=== PATIENT | female | born 1940 | race Caucasian/White ===

== ENCOUNTER → 2018-02-23 10:28 | Outpatient (CLI) | payer MEDICARE, OTHER, SELFPAY ==
--- NOTE | 2018-02-23 | DI.MG.S_ITS ---
BILATERAL DIGITAL SCREENING MAMMOGRAM 3D/2D WITH CAD: 02/23/2018 CLINICAL: Routine screening. Family history of breast cancer. Comparison is made to exams dated: 10/15/2016 mammogram, 10/08/2015 mammogram, and 10/05/2014 mammogram - [facility]. The tissue of both breasts is heterogeneously dense. This may lower the sensitivity of mammography. Current study was also evaluated with a Computer Aided Detection (CAD) system. There are mole markers on the right breast. No significant masses, calcifications, or other findings are seen in either breast. There has been no significant interval change. IMPRESSION: NEGATIVE There is no mammographic evidence of malignancy. A 1 year screening mammogram is recommended. This exam was interpreted at Station ID: [id number]. NOTE: For mammograms, a report in lay terms will be sent to the patient. Approximately 15% of breast malignancies will not be visualized mammographically. In the management of a palpable breast mass, a negative mammogram must not discourage biopsy of a clinically suspicious lesion. Electronically Signed By: Reji macdonald/dora:02/24/2018 00:09:13 letter sent: Normal Exam ACR BI-RADS Category 1: Negative 3341F
== END ==
PROVIDERS: Family Provider Family Medicine; PCP Family Medicine; Visit Provider Family Medicine
DX: Z12.31 Encounter for screening mammogram for malignant neoplasm of breast (principal); Z80.3 Family history of malignant neoplasm of breast
CPT/HCPCS: 77063; 77067

== ENCOUNTER → 2018-12-13 10:50 | Outpatient (CLI) | payer MEDICARE, OTHER, SELFPAY ==
--- NOTE | 2018-12-13 10:52 | DI.MRI.S_ITS ---
PROCEDURE: MR LUMBAR SPINE WO CON INDICATIONS: Left leg weakness TECHNIQUE: Noncontrast sagittal T1 spin echo and T2 fast echo, sagittal STIR, axial T1 and T2 fast spin echo through the lumbar spine. In cases with scoliosis, additional coronal T2 fast spin echo may be performed. COMPARISON: [facility], CR, XR LUMBAR SPINE 6V W BENDING, 12/13/2018, 11:34. [facility], MR, L-SPINE WITHOUT CONTRAST, 07/19/2015, 12:14. FINDINGS: Image quality: Excellent. Alignment and Curvature: There is levoconvex scoliotic curvature with apex at L3-4. There is trace retrolisthesis of L1 on L2, L2 on L3, L3 on all or, L4-L5 and L5 on S1. Bone Marrow: Marrow is of normal overall signal. Moderate reactive endplate changes are present at L3-4, L4-5, mild to moderate L2-L3 and L5-S1. No acute vertebral body compression fractures. Spinal Cord: Conus medullaris terminates at the L1 level. Visualized cord demonstrates normal signal and size. Paraspinous Soft Tissues: No paravertebral masses. Discs: Multilevel moderate to severe disc desiccation is present most notable at L4-5 and L5-S1. L1-L2: Mild disc bulge without spinal stenosis. The mild left foraminal narrowing with facet and ligamentum flavum hypertrophy. Epidural lipomatosis is present. No interval change. L2-L3: Mild disc bulge with moderate to severe spinal stenosis. Facet and ligamentum flavum hypertrophy as well as epidural lipomatosis is present. Mild to moderate left and mild right foraminal narrowing with minimal interval progression. L3-L4: Mild disc bulge with moderate spinal stenosis. There is moderate bilateral foraminal narrowing with facet and ligamentum flavum hypertrophy. No interval change. L4-L5: Mild disc bulge including an asymmetric protrusion in the left posterior paracentral location with compromise of the right lateral recess. This has increased in size compared to prior exam. There is moderate bilateral, left third and right foraminal narrowing with facet and ligamentum flavum hypertrophy. L5-S1: Mild disc bulge including a small left foraminal component appearing new. There is moderate to severe left and mild right foraminal narrowing with facet and ligamentum flavum hypertrophy. No interval progression. IMPRESSION: 1. Multilevel degenerative changes with areas of progression as above. 2. Multilevel spinal stenosis most severe at L2-3 secondary to disc bulge with contributing effect of retrolisthesis as well as facet/ligamentum flavum arthropathy. 3. Multilevel foraminal narrowing most prominent at L4-5 and L5-S1 secondary to facet arthropathy as well as retrolisthesis. Dictated by: Thu Carter M.D. on 12/13/2018 at 15:20 Approved by: Thu Carter M.D. on 12/13/2018 at 15:34
--- NOTE | 2018-12-13 10:52 | DI.RAD.S_ITS ---
PROCEDURE: XR LUMBAR SPINE 6V W BENDING INDICATIONS: lumbar spine pain TECHNIQUE: 7 views of the lumbar spine acquired. COMPARISON: [facility], CR, SPINE LUMB 2 OR 3VW, 04/09/2016, 15:13. FINDINGS: Bones: No fracture or focal osseous destruction. Straightening of the normal lordotic curvature. Multilevel degenerative endplate sclerosis and spurring. Diffuse facet arthropathy. Severe narrowing of the L3-L4, L4-L5 disc spaces. Moderate narrowing of the remaining lumbar disc spaces. Levocurvature centered at L3. No evidence of abnormal motion with dynamic flexion and extension lateral views. IMPRESSION: Multilevel spondylosis and levocurvature, grossly unchanged. No evidence of abnormal motion with dynamic flexion and extension lateral views. Dictated by: Zach Astorga M.D. on 12/13/2018 at 13:19 Approved by: Zach Astorga M.D. on 12/13/2018 at 13:21
== END ==
PROVIDERS: Family Provider Family Medicine; PCP Family Medicine; Visit Provider Physical Medicine & Rehabilitation
DX: M48.061 Spinal stenosis, lumbar region without neurogenic claudication (principal); M48.07 Spinal stenosis, lumbosacral region; M47.816 Spondylosis without myelopathy or radiculopathy, lumbar region; M47.817 Spondylosis without myelopathy or radiculopathy, lumbosacral region; M43.16 Spondylolisthesis, lumbar region; M43.17 Spondylolisthesis, lumbosacral region; M51.26 Other intervertebral disc displacement, lumbar region; M96.1 Postlaminectomy syndrome, not elsewhere classified
CPT/HCPCS: 72114; 72148; 99214

== ENCOUNTER 2019-01-25 06:58 | Outpatient (CLI) | payer MEDICARE, OTHER, SELFPAY ==
[2019-01-25] VITALS (11 sets, daily range): BP systolic 91–179; BP diastolic 35–85; PULSE 58–77; RESP 16; TEMP 36.1; O2SAT 93–100
--- NOTE | 2019-01-25 06:59 | DI.RAD.S_ITS ---
PROCEDURE: PAIN L/S TRANSFORAMINAL INJECT INDICATIONS: SPINAL STENOSIS FINDINGS: Fluoroscopic spot filming was performed to verify placement of spinal needles at the L4-L5 level(s), as labeled on the films. Appropriate location(s) of the needle tip(s) was confirmed by injection of iodinated contrast. Dictated by: Zach Astorga M.D. on 01/25/2019 at 11:15 Approved by: Zcah Astorga M.D. on 01/25/2019 at 11:16
[2019-01-25] MEDS: fentaNYL 100 MCG/2 ML INJ 50 MCG IV (08:45)
[2019-01-25] MEDS: MIDAZOLAM 5 MG/5 ML VIAL IV (08:45)
[2019-01-25] MEDS: BUPIVACAINE 0.25% (PF) VIAL 2 ML INJ (08:51)
[2019-01-25] MEDS: DEXAMETHASONE 10 MG/ML VIAL 20 MG INJ (08:51)
[2019-01-25] MEDS: BETAMETHASONE 30 MG/5 ML MDV 6 MG INJ (08:51)
[2019-01-25] MEDS: IOPAMIDOL 15 ML VIAL 3 ML INJ (08:51)
--- NOTE | 2019-01-25 08:54 | PC.NURSE ---
ASSISTING PT OFF TABLE AND TRANSPORTING TO POST PROC AREA IN STABLE CONDITION
--- NOTE | 2019-01-25 09:03 | PC.NURSE ---
Pt returned from procedure in a wheelchair, awake and alert, needed 2 person assist to get back into chair from w/c related to left leg numbness. Resumed monitoring from Martha HOWELL.
--- NOTE | 2019-01-25 09:05 | P.PCN_ITS ---
Procedures Date/Time Date of procedure: 01/25/19 Time of procedure: 09:03 General Procedure description: PREOP DIAGNOSIS 1. FORMAINAL STENOSIS WITH LE SYMPTOMS POST OP DIAGNOSIS 1. FORMAINAL STENOSIS WITH LE SYMPTOMS PROCEDURES 1. FLUOROSCOPICALLY GUIDED CONTRAST CONTROLLED TRANSFORAMINAL EPIDURAL STEROID INJECTION - LEFT L4/5 PHYSICIAN: Geovany Green DO INDICATIONS: Nayeli is referred by for treatment of Foraminal Stenosis with Left LE Symptoms FINDINGS Foraminal Nerve Root Compression secondary to disc disease and facet hypertrophy DESCRIPTION OF PROCEDURE: Following review of allergy and review of potential side effects and complications, including, but not necessarily limited to, infection, allergic reaction, local tissue breakdown, stroke, temporary or permanent nerve injury, paralysis, and possible , the patient indicated that the patient understood and agreed to proceed. An informed consent document was signed by the patient, witnessed by a nurse, and placed in the patient's chart. Additionally, other treatment options including medications, modalities, and physical therapy were reviewed with the patient. After review of previous anaesthesic history and IV conscious sedation the patient was deemed safe to proceed with todays procedure with IV conscious sedation as ASA class II designation. Safety time-out was performed to confirm patient ID, procedure to be performed and site of procedure. IV sedation was accomplished with a combination of 2mg of Versed and 50mcg of Fentanyl administered by the RN after DO order, titrated to patient comfort during the course of the procedure while the patient remained responsive to all verbal commands In the prone position following sterile prep and drape of the lumbar region, the left L4/5 posterior neuroforamen was identified fluoroscopically. The skin was anesthetized via a 25-gauge 1.5-inch needle with 1% lidocaine solution. At this point, a 25-gauge 3.5-inch spinal needle was atraumatically introduced and advanced under fluoroscopic guidance through the posterior left L4/5 neuroforamen to approximately the anterior aspect of the canal. Depth was confirmed on lateral view. Following negative aspiration, injection of approximately 1.5 cc of Isovue 200 under live fluoroscopy in the AP view confirmed excellent flow along the nerve root, into the epidural space without vascular or intrathecal uptake observed Radiological data, including multiple fluoroscopic views of the lumbosacral spine, reveal a spinal needle at the left L4/5 posterior neuroforamen. Subsequent views show flow of contrast material flowing superiorly and inferiorly along the nerve root confirming epidural flow. Subsequently, a test dose of 1.5 cc of 1% lidocaine solution was administered and patient was observed for two minutes for signs or symptoms of complications, including abdominal pain, shortness of breath, bilateral upper or lower extremity weakness, nausea and vomiting, prior to steroid injection. At this point, a total of 3cc or 20mg of dexamethasone and 6mg of betamethasone was injected without incident. The procedure tolerated the procedure well without signs or symptoms of complications prior to transfer to the recovery area continued monitoring without incident. The patient was then transferred to the recovery area where they were observed for an appropriate time after the injection. The patient reported a VAS score of 7 prior to the procedure and a post- procedure VAS of 0. Total Fluoroscopy Time: 20.9 seconds Total Conscious Sedation Time: 24min POST OP INSTRUCTIONS The patient was provided a Pain Log to continue to record their response to the target-specific procedure prior to follow-up visit with their referring physician. Additionally, specific post-injection care instructions and a contact number to our office were provided if concerns arise regarding possible complications associated with the procedure are suspected. Geovany Green DO Complications: none
--- NOTE | 2019-01-25 09:18 | PC.NURSE ---
apt became nauseated and threw up, Tipped her chair up to elevate her feet. and gave her some zofran iv. She says she sometimes has this reaction with medications.
--- NOTE | 2019-01-25 09:50 | PC.NURSE ---
Pt still nauseated but stable, vomited once more after the zofran. Getting some feeling back in her left leg It doesn't feel as heavy she is able to move it dependently. Continues to vomit, notified Dr. Green and started a liter of NS and gave her 0.4mg Narcan.
[2019-01-25] MEDS: ONDANSETRON 4 MG/2 ML INJ IV (10:28)
[2019-01-25] MEDS: SODIUM CHLORIDE 0.9% 1,000 ML 1000 ML IV (10:28)
[2019-01-25] MEDS: NALOXONE 0.4 MG/ML VIAL IV (10:28)
--- NOTE | 2019-01-25 10:37 | PC.NURSE ---
Pt still nauseated, updated her allergy list, pt steady on feet and plans to be in the car [place] at 12:30. Dc'd with . Gave pt some emesis bags for later if needed.
== END 2019-01-25 10:38 ==
LOC: RAD 06:59
PROVIDERS: Family Provider Family Medicine; PCP Family Medicine; Visit Provider Physical Medicine & Rehabilitation
DX: M48.061 Spinal stenosis, lumbar region without neurogenic claudication (principal); M51.16 Intervertebral disc disorders with radiculopathy, lumbar region; M96.1 Postlaminectomy syndrome, not elsewhere classified
CPT/HCPCS: 64483; 99152; J0702; J1100; J2250; J2310; J2405; J3010

== ENCOUNTER → 2019-04-06 12:19 | Outpatient (CLI) | payer MEDICARE, OTHER, SELFPAY ==
--- NOTE | 2019-04-06 | DI.MG.S_ITS ---
BILATERAL DIGITAL SCREENING MAMMOGRAM 3D/2D WITH CAD: 04/06/2019 CLINICAL: Routine screening. Family history of breast cancer. Comparison is made to exams dated: 02/23/2018 mammogram, 10/15/2016 mammogram, and 10/08/2015 mammogram - [facility]. The tissue of both breasts is heterogeneously dense. This may lower the sensitivity of mammography. Current study was also evaluated with a Computer Aided Detection (CAD) system. There are mole markers on the right breast. No significant masses, calcifications, or other findings are seen in either breast. There has been no significant interval change. IMPRESSION: NEGATIVE There is no mammographic evidence of malignancy. A 1 year screening mammogram is recommended. This exam was interpreted at Station ID: [id number]. NOTE: For mammograms, a report in lay terms will be sent to the patient. Approximately 15% of breast malignancies will not be visualized mammographically. In the management of a palpable breast mass, a negative mammogram must not discourage biopsy of a clinically suspicious lesion. Electronically Signed By: Allyson ortiz/dora:04/06/2019 13:02:07 letter sent: Normal Exam ACR BI-RADS Category 1: Negative 3341F
== END ==
PROVIDERS: PCP Family Medicine; Visit Provider Family Medicine
DX: Z12.31 Encounter for screening mammogram for malignant neoplasm of breast (principal); Z80.3 Family history of malignant neoplasm of breast
CPT/HCPCS: 77063; 77067

== ENCOUNTER → 2020-04-19 11:19 | Outpatient (CLI) | payer MEDICARE, OTHER, SELFPAY ==
--- NOTE | 2020-04-19 | DI.MG.S_ITS ---
BILATERAL DIGITAL SCREENING MAMMOGRAM 3D/2D WITH CAD: 04/19/2020 CLINICAL: Routine screening. Family history of breast cancer. Comparison is made to exams dated: 04/06/2019 mammogram, 02/23/2018 mammogram, 10/15/2016 mammogram, 10/08/2015 mammogram, 10/05/2014 mammogram, and 09/16/2013 mammogram - [facility]. The tissue of both breasts is heterogeneously dense. This may lower the sensitivity of mammography. Current study was also evaluated with a Computer Aided Detection (CAD) system. No significant masses, calcifications, or other findings are seen in either breast. There has been no significant interval change. IMPRESSION: NEGATIVE There is no mammographic evidence of malignancy. A 1 year screening mammogram is recommended. This exam was interpreted at Station ID: [id number]. NOTE: For mammograms, a report in lay terms will be sent to the patient. Approximately 15% of breast malignancies will not be visualized mammographically. In the management of a palpable breast mass, a negative mammogram must not discourage biopsy of a clinically suspicious lesion. Electronically Signed By: Balta harris/dora:04/19/2020 14:28:25 letter sent: Normal Exam ACR BI-RADS Category 1: Negative 3341F
== END ==
PROVIDERS: PCP Family Medicine; Referring Provider Family Medicine; Visit Provider Family Medicine
DX: Z12.31 Encounter for screening mammogram for malignant neoplasm of breast (principal); Z80.3 Family history of malignant neoplasm of breast
CPT/HCPCS: 77063; 77067

== ENCOUNTER → 2021-05-21 10:55 | Outpatient (CLI) | payer MEDICARE, OTHER, SELFPAY ==
--- NOTE | 2021-05-21 | DI.MG.S_ITS ---
BILATERAL DIGITAL SCREENING MAMMOGRAM 3D/2D WITH CAD: 05/21/2021 CLINICAL: Routine screening. Family history of breast cancer. Comparison is made to exams dated: 04/19/2020 mammogram, 04/06/2019 mammogram, and 02/23/2018 mammogram - [facility]. The tissue of both breasts is heterogeneously dense. This may lower the sensitivity of mammography. Current study was also evaluated with a Computer Aided Detection (CAD) system. No significant masses, calcifications, or other findings are seen in either breast. There has been no significant interval change. IMPRESSION: NEGATIVE There is no mammographic evidence of malignancy. A 1 year screening mammogram is recommended. This exam was interpreted at Station ID: [id number]. NOTE: For mammograms, a report in lay terms will be sent to the patient. Approximately 15% of breast malignancies will not be visualized mammographically. In the management of a palpable breast mass, a negative mammogram must not discourage biopsy of a clinically suspicious lesion. Electronically Signed By: Aric mejia/dora:05/21/2021 13:09:04 letter sent: Normal Exam ACR BI-RADS Category 1: Negative 3341F
== END ==
PROVIDERS: PCP Physician Assistant Medical; Referring Provider Physician Assistant Medical; Visit Provider Physician Assistant Medical
DX: Z12.31 Encounter for screening mammogram for malignant neoplasm of breast (principal); Z80.3 Family history of malignant neoplasm of breast
CPT/HCPCS: 77063; 77067

== ENCOUNTER → 2021-06-25 09:04 | Outpatient (CLI) | payer MEDICARE, OTHER, SELFPAY ==
[2021-06-25 18:59] LABS: Add Manual Diff / Slide Review NO; Basophils Absolute Auto 0 /uL (0-100); Basophils Percent Auto 1.1 % (0-2); Eosinophils Absolute Auto 100 /uL (0-450); Eosinophils Percent Auto 2.4 % (2-4); Hematocrit 39.4 % (36-46); Hemoglobin 13.3 g/dL (12.0-16.0); Lymphocytes Absolute Auto 2100 /uL (1100-4500); Lymphocytes Percent Auto 49.3 % (25-40); Mean Corpuscular HGB Conc 33.8 % (30-36); Mean Corpuscular Hemoglobin 31.5 PG (26-34); Mean Corpuscular Volume 93.3 fL (80-100); Monocytes Absolute Auto 500 /uL (0-900); Monocytes Percent Auto 10.6 % (3-14); Neutrophils Absolute Auto 1600 /uL (1500-7000); Neutrophils Percent Auto 36.6 % (50-75); Platelet Count 229 X10^3/uL (150-400); Red Blood Cell Count 4.22 X10^6/uL (4.0-5.2); Red Cell Distribution Width 12.9 % (11.6-14.8); White Blood Cell Count 4.2 X10^3/uL (4.5-11.0)
[2021-06-25 19:33] LABS: Alanine Aminotransferase 37 IU/L (<35); Albumin 4.1 g/dL (3.5-5.0); Albumin Globulin Ratio 1.4 (1.0-2.8); Alkaline Phosphatase 57 U/L (38-126); Aspartate Aminotransferase 36 IU/L (14-36); BUN Creatinine Ratio 33.3 (6-22); Bilirubin Total 0.6 mg/dL (0.2-1.3); Blood Urea Nitrogen 19 mg/dL (7-17); Calcium 9.4 mg/dL (8.4-10.2); Carbon Dioxide 30 mmol/L (22-32); Chloride 104 mmol/L (98-107); Cholesterol 230 mg/dL (140-199); Estimated Glomerular Filt Rate > 60.0 mL/min (>60); Glucose 112 mg/dL (80-110); HDL Cholesterol 55 mg/dL (40-60); HEMOLYSIS < 15 (0-50); LDL Cholesterol Calculated 152 mg/dL (<100); Potassium 4.7 mmol/L (3.4-5.1); Sodium 140 mmol/L (137-145); Total Protein 7.1 g/dL (6.3-8.2); Triglycerides 116 mg/dL (35-150)
[2021-06-25 20:07] LABS: TSH w/ Reflex to FT4 2.84 uIU/mL (0.47-4.68)
== END ==
PROVIDERS: PCP Physician Assistant Medical; Visit Provider Physician Assistant Medical
DX: M48.02 Spinal stenosis, cervical region (principal); I10 Essential (primary) hypertension; I48.91 Unspecified atrial fibrillation; G82.20 Paraplegia, unspecified; M41.80 Other forms of scoliosis, site unspecified; M47.27 Other spondylosis with radiculopathy, lumbosacral region; M96.1 Postlaminectomy syndrome, not elsewhere classified
CPT/HCPCS: 80053; 80061; 84443; 85025

== ENCOUNTER → 2021-10-10 08:31 | Outpatient (CLI) | payer MEDICARE, OTHER, SELFPAY ==
[2021-10-10 18:44] LABS: Add Manual Diff / Slide Review NO; Basophils Absolute Auto 0 /uL (0-100); Basophils Percent Auto 1.1 % (0-2); Eosinophils Absolute Auto 100 /uL (0-450); Eosinophils Percent Auto 1.6 % (2-4); Hemoglobin 12.7 g/dL (12.0-16.0); Lymphocytes Absolute Auto 2300 /uL (1100-4500); Lymphocytes Percent Auto 58.8 % (25-40); Mean Corpuscular HGB Conc 33.5 % (30-36); Mean Corpuscular Hemoglobin 30.6 PG (26-34); Mean Corpuscular Volume 91.4 fL (80-100); Monocytes Absolute Auto 400 /uL (0-900); Monocytes Percent Auto 9.6 % (3-14); Neutrophils Absolute Auto 1100 /uL (1500-7000); Neutrophils Percent Auto 28.9 % (50-75); Platelet Count 213 X10^3/uL (150-400); Red Blood Cell Count 4.15 X10^6/uL (4.0-5.2); Red Cell Distribution Width 12.6 % (11.6-14.8); White Blood Cell Count 3.9 X10^3/uL (4.5-11.0)
[2021-10-10 19:06] LABS: Hemoglobin A1C% w Est Avg Glu 6.2 % (4.0-6.0)
[2021-10-10 19:13] LABS: Alanine Aminotransferase 28 IU/L (<35); Albumin 3.8 g/dL (3.5-5.0); Albumin Globulin Ratio 1.3 (1.0-2.8); Alkaline Phosphatase 57 U/L (38-126); Aspartate Aminotransferase 31 IU/L (14-36); BUN Creatinine Ratio 28.1 (6-22); Bilirubin Total 0.5 mg/dL (0.2-1.3); Blood Urea Nitrogen 16 mg/dL (7-17); Carbon Dioxide 27 mmol/L (22-32); Chloride 104 mmol/L (98-107); Cholesterol 207 mg/dL (140-199); Estimated Glomerular Filt Rate > 60 mL/min (>60); Glucose 108 mg/dL (80-110); HDL Cholesterol 45 mg/dL (40-60); HEMOLYSIS < 15 (0-50); LDL Cholesterol Calculated 143 mg/dL (<100); Potassium 4.2 mmol/L (3.4-5.1); Sodium 140 mmol/L (137-145); Total Protein 6.8 g/dL (6.3-8.2); Triglycerides 94 mg/dL (35-150)
== END ==
PROVIDERS: PCP Physician Assistant Medical; Visit Provider Physician Assistant Medical
DX: M48.02 Spinal stenosis, cervical region (principal); I10 Essential (primary) hypertension; R73.9 Hyperglycemia, unspecified; R74.8 Abnormal levels of other serum enzymes
CPT/HCPCS: 80053; 80061; 83036; 85025

== ENCOUNTER → 2022-03-10 09:05 | Outpatient (CLI) | payer MEDICARE, OTHER, SELFPAY ==
[2022-03-10 20:17] LABS: Add Manual Diff / Slide Review NO; Basophils Absolute Auto 0 /uL (0-100); Basophils Percent Auto 1.2 % (0-2); Eosinophils Absolute Auto 0 /uL (0-450); Eosinophils Percent Auto 0.8 % (2-4); Hematocrit 40.2 % (36-46); Hemoglobin 13.7 g/dL (12.0-16.0); Lymphocytes Absolute Auto 1800 /uL (1100-4500); Lymphocytes Percent Auto 44.6 % (25-40); Mean Corpuscular HGB Conc 34.2 % (30-36); Mean Corpuscular Hemoglobin 31.9 PG (26-34); Mean Corpuscular Volume 93.1 fL (80-100); Monocytes Absolute Auto 400 /uL (0-900); Monocytes Percent Auto 10.9 % (3-14); Neutrophils Absolute Auto 1700 /uL (1500-7000); Neutrophils Percent Auto 42.5 % (50-75); Platelet Count 195 X10^3/uL (150-400); Red Blood Cell Count 4.31 X10^6/uL (4.0-5.2); Red Cell Distribution Width 13.3 % (11.6-14.8)
[2022-03-10 20:22] LABS: Hemoglobin A1C% w Est Avg Glu 5.9 % (4.0-6.0)
[2022-03-10 20:36] LABS: Cholesterol 230 mg/dL (140-199); HDL Cholesterol 58 mg/dL (40-60); LDL Cholesterol Calculated 150 mg/dL (<100); Triglycerides 108 mg/dL (35-150)
== END ==
PROVIDERS: PCP Family Medicine; Visit Provider Family Medicine
DX: I48.91 Unspecified atrial fibrillation (principal); E78.2 Mixed hyperlipidemia; R74.8 Abnormal levels of other serum enzymes; E74.39 Other disorders of intestinal carbohydrate absorption; I10 Essential (primary) hypertension; M21.372 Foot drop, left foot; M96.1 Postlaminectomy syndrome, not elsewhere classified
CPT/HCPCS: 80061; 83036; 85025

== ENCOUNTER → 2022-06-25 11:50 | Outpatient (CLI) | payer MEDICARE, OTHER, SELFPAY ==
--- NOTE | 2022-06-25 11:52 | DI.MG.S_ITS ---
BILATERAL DIGITAL SCREENING MAMMOGRAM 3D/2D WITH CAD: 06/25/2022 CLINICAL: Routine screening. Family history of breast cancer. Comparison is made to exams dated: 05/21/2021 mammogram, 04/19/2020 mammogram, and 04/06/2019 mammogram - [facility]. Both breasts are heterogeneously dense, which may obscure small masses (category c / 51-75% glandular tissue). Current study was also evaluated with a Computer Aided Detection (CAD) system. No significant masses, calcifications, or other findings are seen in either breast. There has been no significant interval change. IMPRESSION: NEGATIVE There is no mammographic evidence of malignancy. A 1 year screening mammogram is recommended. Based on the Tyrer Cuzick model (a risk assessment model) the patient's lifetime risk is 5.8% and her 10 year risk is 0.0%. According to the ACR, ACS, and NCCN guidelines, an annual breast MRI exam along with mammogram is recommended if the patient's lifetime risk is 20% or greater. This exam was interpreted at Station ID: [id number]. NOTE: For mammograms, a report in lay terms will be sent to the patient. Approximately 15% of breast malignancies will not be visualized mammographically. In the management of a palpable breast mass, a negative mammogram must not discourage biopsy of a clinically suspicious lesion. Electronically Signed By: Jade frederick/dora:06/25/2022 15:16:24 letter sent: Normal Exam ACR BI-RADS Category 1: Negative 3341F
== END ==
PROVIDERS: PCP Family Medicine; Referring Provider Family Medicine; Visit Provider Family Medicine
DX: Z12.31 Encounter for screening mammogram for malignant neoplasm of breast (principal); Z80.3 Family history of malignant neoplasm of breast
CPT/HCPCS: 77063; 77067

== ENCOUNTER → 2022-09-10 11:07 | Outpatient (CLI) | payer MEDICARE, OTHER, SELFPAY ==
[2022-09-10 20:29] LABS: Add Manual Diff / Slide Review NO; Basophils Absolute Auto 0 /uL (0-100); Basophils Percent Auto 0.9 % (0-2); Eosinophils Absolute Auto 0 /uL (0-450); Eosinophils Percent Auto 0.6 % (2-4); Hematocrit 39.7 % (36-46); Hemoglobin 13.5 g/dL (12.0-16.0); Lymphocytes Absolute Auto 2300 /uL (1100-4500); Lymphocytes Percent Auto 47.6 % (25-40); Mean Corpuscular Hemoglobin 31.6 PG (26-34); Mean Corpuscular Volume 92.8 fL (80-100); Monocytes Absolute Auto 500 /uL (0-900); Neutrophils Absolute Auto 2000 /uL (1500-7000); Neutrophils Percent Auto 40.9 % (50-75); Platelet Count 225 X10^3/uL (150-400); Red Blood Cell Count 4.28 X10^6/uL (4.0-5.2); Red Cell Distribution Width 12.8 % (11.6-14.8); White Blood Cell Count 4.9 X10^3/uL (4.5-11.0)
[2022-09-10 20:40] LABS: Cholesterol 227 mg/dL (140-199); HDL Cholesterol 59 mg/dL (40-60); LDL Cholesterol Calculated 146 mg/dL (<100); Triglycerides 110 mg/dL (35-150)
[2022-09-12 05:00] LABS: x Labcorp Estim. Avg Glu (eAG) 123 mg/dL (.); x Labcorp Hemoglobin A1c 5.9 % (4.8-5.6)
== END ==
PROVIDERS: PCP Family Medicine; Visit Provider Family Medicine
DX: M48.02 Spinal stenosis, cervical region (principal); E78.2 Mixed hyperlipidemia; D70.9 Neutropenia, unspecified; E74.39 Other disorders of intestinal carbohydrate absorption; I10 Essential (primary) hypertension
CPT/HCPCS: 80061; 83036; 85025

== ENCOUNTER → 2023-01-07 08:37 | Outpatient (CLI) | payer MEDICARE, OTHER, SELFPAY | PROVIDERS: PCP Family Medicine; Visit Provider Physician Assistant | DX: L03.012 Cellulitis of left finger (principal) | CPT/HCPCS: 87070; 87075; 87205 ==

== ENCOUNTER → 2023-03-25 13:55 | Outpatient (CLI) | payer MEDICARE, OTHER, SELFPAY ==
[2023-03-25 19:19] LABS: Add Manual Diff / Slide Review NO; Basophils Absolute Auto 0 /uL (0-100); Eosinophils Absolute Auto 0 /uL (0-450); Eosinophils Percent Auto 0.8 % (2-4); Hematocrit 42.2 % (36-46); Hemoglobin 14.2 g/dL (12.0-16.0); Hemoglobin A1C% w Est Avg Glu 5.6 % (4.0-6.0); Lymphocytes Absolute Auto 2200 /uL (1100-4500); Lymphocytes Percent Auto 52.2 % (25-40); Mean Corpuscular HGB Conc 33.6 % (30-36); Mean Corpuscular Hemoglobin 31.5 PG (26-34); Mean Corpuscular Volume 93.6 fL (80-100); Monocytes Absolute Auto 500 /uL (0-900); Monocytes Percent Auto 10.9 % (3-14); Neutrophils Absolute Auto 1500 /uL (1500-7000); Neutrophils Percent Auto 35.1 % (50-75); Platelet Count 212 X10^3/uL (150-400); Red Cell Distribution Width 13.4 % (11.6-14.8); White Blood Cell Count 4.2 X10^3/uL (4.5-11.0)
[2023-03-25 19:25] LABS: BUN Creatinine Ratio 32.7 (6-22); Blood Urea Nitrogen 16 mg/dL (7-17); Calcium 9.8 mg/dL (8.4-10.2); Carbon Dioxide 28 mmol/L (22-32); Chloride 99 mmol/L (98-107); Cholesterol 233 mg/dL (140-199); Estimated Glomerular Filt Rate > 60 mL/min (>60); Glucose 108 mg/dL (80-110); HDL Cholesterol 60 mg/dL (40-60); HEMOLYSIS < 15 (0-50); LDL Cholesterol Calculated 147 mg/dL (<100); Potassium 4.6 mmol/L (3.4-5.1); Sodium 135 mmol/L (137-145); Triglycerides 129 mg/dL (35-150)
== END ==
PROVIDERS: PCP Family Medicine; Visit Provider Family Medicine
DX: D70.9 Neutropenia, unspecified (principal); E78.2 Mixed hyperlipidemia; R73.03 Prediabetes; I48.0 Paroxysmal atrial fibrillation; I10 Essential (primary) hypertension
CPT/HCPCS: 80048; 80061; 83036; 85025

== ENCOUNTER → 2023-03-26 11:24 | Outpatient (CLI) | payer MEDICARE, OTHER, SELFPAY ==
[2023-03-26 20:05] LABS: Creatinine Urine Random 54.9 mg/dL
[2023-03-26 20:10] LABS: Microalbumi Creatinin Ratio Ur 30.9 ug/mg CR (<30); Microalbumin Urine Random 1.7 mg/dL (0-1.6)
== END ==
PROVIDERS: PCP Family Medicine; Visit Provider Family Medicine
DX: R73.03 Prediabetes (principal); D70.9 Neutropenia, unspecified; I10 Essential (primary) hypertension
CPT/HCPCS: 82043; 82570

== ENCOUNTER → 2023-07-09 10:59 | Outpatient (CLI) | payer MEDICARE, OTHER, SELFPAY ==
--- NOTE | 2023-07-09 11:01 | DI.MG.S_ITS ---
BILATERAL DIGITAL SCREENING MAMMOGRAM 3D/2D WITH CAD: 07/09/2023 CLINICAL: Routine screening. Family history of breast cancer. Comparison is made to exams dated: 06/25/2022 mammogram, 05/21/2021 mammogram, and 04/19/2020 mammogram - [facility]. Both breasts are heterogeneously dense, which may obscure small masses (category c / 51-75% glandular tissue). Current study was also evaluated with a Computer Aided Detection (CAD) system. No significant masses, calcifications, or other findings are seen in either breast. There has been no significant interval change. IMPRESSION: NEGATIVE There is no mammographic evidence of malignancy. A 1 year screening mammogram is recommended. Based on the Tyrer Cuzick model (a risk assessment model) the patient's lifetime risk is 2.7% and her 10 year risk is 0.0%. According to the ACR, ACS, and NCCN guidelines, an annual breast MRI exam along with mammogram is recommended if the patient's lifetime risk is 20% or greater. This exam was interpreted at Station ID: [id number]. NOTE: For mammograms, a report in lay terms will be sent to the patient. Approximately 15% of breast malignancies will not be visualized mammographically. In the management of a palpable breast mass, a negative mammogram must not discourage biopsy of a clinically suspicious lesion. Electronically Signed By: Sharif londono/dora:07/09/2023 13:08:24 letter sent: Normal Exam ACR BI-RADS Category 1: Negative 3341F
== END ==
PROVIDERS: PCP Family Medicine; Referring Provider Family Medicine; Visit Provider Family Medicine
DX: Z12.31 Encounter for screening mammogram for malignant neoplasm of breast (principal); Z80.3 Family history of malignant neoplasm of breast; R92.333 Mammographic heterogeneous density, bilateral breasts
CPT/HCPCS: 77063; 77067

== ENCOUNTER → 2024-03-28 09:31 | Outpatient (CLI) | payer MEDICARE, OTHER, SELFPAY ==
[2024-03-28 19:37] LABS: Add Manual Diff / Slide Review NO; Basophils Absolute Auto 0 /uL (0-100); Basophils Percent Auto 1.1 % (0-2); Eosinophils Absolute Auto 0 /uL (0-450); Hematocrit 40.8 % (36-46); Hemoglobin 13.8 g/dL (12.0-16.0); Lymphocytes Absolute Auto 1800 /uL (1100-4500); Lymphocytes Percent Auto 42.3 % (25-40); Mean Corpuscular HGB Conc 33.7 % (30-36); Mean Corpuscular Hemoglobin 31.8 PG (26-34); Mean Corpuscular Volume 94.3 fL (80-100); Monocytes Absolute Auto 600 /uL (0-900); Monocytes Percent Auto 13.4 % (3-14); Neutrophils Absolute Auto 1800 /uL (1500-7000); Neutrophils Percent Auto 42.2 % (50-75); Platelet Count 231 X10^3/uL (150-400); Red Blood Cell Count 4.33 X10^6/uL (4.0-5.2); White Blood Cell Count 4.2 X10^3/uL (4.5-11.0)
[2024-03-28 19:44] LABS: BUN Creatinine Ratio 36.2 (6-22); Blood Urea Nitrogen 21 mg/dL (7-17); Carbon Dioxide 30 mmol/L (22-32); Chloride 99 mmol/L (98-107); Cholesterol 235 mg/dL (140-199); Estimated Glomerular Filt Rate > 60 mL/min (>60); Glucose 113 mg/dL (80-110); HDL Cholesterol 61 mg/dL (40-60); HEMOLYSIS 23 (0-50); LDL Cholesterol Calculated 151 mg/dL (<100); Potassium 4.8 mmol/L (3.4-5.1); Sodium 135 mmol/L (137-145); Triglycerides 117 mg/dL (35-150)
[2024-03-28 20:12] LABS: TSH w/ Reflex to FT4 2.44 uIU/mL (0.47-4.68)
== END ==
PROVIDERS: PCP Family Medicine; Visit Provider Family Medicine
DX: R80.9 Proteinuria, unspecified (principal); E78.2 Mixed hyperlipidemia; I48.0 Paroxysmal atrial fibrillation; D70.9 Neutropenia, unspecified; I10 Essential (primary) hypertension; M48.062 Spinal stenosis, lumbar region with neurogenic claudication
CPT/HCPCS: 80048; 80061; 84443; 85025

== ENCOUNTER 2024-05-04 18:44 | Emergency (ER) | payer MEDICARE, OTHER, SELFPAY ==
[2024-05-04] VITALS (10 sets, daily range): BP systolic 128–151; BP diastolic 63–108; PULSE 65–145; RESP 11–18; TEMP 36.3–37.1; O2SAT 96–99; BMI 20.6
--- NOTE | 2024-05-04 19:04 | DI.RAD.S_ITS ---
PROCEDURE: XR CHEST 1V INDICATIONS: chest pain TECHNIQUE: One view of the chest was acquired. COMPARISON: None. FINDINGS: Surgical changes and devices: None. Lungs and pleura: Lungs are clear. No pleural effusions or pneumothorax. Mediastinum: Mediastinal contours appear normal. Heart size is normal. Bones and chest wall: No suspicious bony lesions. Overlying soft tissues appear unremarkable. IMPRESSION: No acute pulmonary process. Dictated by: Thu Carter M.D. on 05/04/2024 at 20:02 Approved by: Thu Carter M.D. on 05/04/2024 at 20:02
--- NOTE | 2024-05-04 19:04 | EKG_ITS ---
[address] [address] Test Date: 2024-05-04 Pat Name: Nayeli Solis Department: Room: Gender: Female [employer] Helper: IDALMIS : 1940 Requested By: Order Number: [id number] Reading MD: Fran Martinez Measurements Intervals [place] Rate: 81 P: 51 DC: 202 QRS: -26 QRSD: 72 T: 31 QT: 366 QTc: 425 Interpretive Statements Normal sinus rhythm Inferior infarct , age undetermined Electronically Signed On 05-05-2024 7:59:03 PST by Fran Martinez
[2024-05-04] MEDS: ASPIRIN 81 MG CHEW TAB 324 MG PO (19:38)
[2024-05-04 20:00] LABS: Add Manual Diff / Slide Review NO; Basophils Absolute Auto 100 /uL (0-100); Basophils Percent Auto 1.2 % (0-2); Eosinophils Absolute Auto 0 /uL (0-450); Eosinophils Percent Auto 0.5 % (2-4); Hematocrit 41.2 % (36-46); Hemoglobin 13.9 g/dL (12.0-16.0); Lymphocytes Absolute Auto 2700 /uL (1100-4500); Lymphocytes Percent Auto 52.1 % (25-40); Mean Corpuscular HGB Conc 33.7 % (30-36); Mean Corpuscular Hemoglobin 31.8 PG (26-34); Mean Corpuscular Volume 94.5 fL (80-100); Monocytes Absolute Auto 400 /uL (0-900); Monocytes Percent Auto 8.8 % (3-14); Neutrophils Absolute Auto 1900 /uL (1500-7000); Neutrophils Percent Auto 37.4 % (50-75); Platelet Count 245 X10^3/uL (150-400); Red Blood Cell Count 4.36 X10^6/uL (4.0-5.2); Red Cell Distribution Width 12.6 % (11.6-14.8); White Blood Cell Count 5.1 X10^3/uL (4.5-11.0)
[2024-05-04 20:12] LABS: Alanine Aminotransferase 31 IU/L (<35); Albumin 4.2 g/dL (3.5-5.0); Albumin Globulin Ratio 1.3 (1.0-2.8); Alkaline Phosphatase 66 U/L (38-126); Aspartate Aminotransferase 38 IU/L (14-36); BUN Creatinine Ratio 23.7 (6-22); Bilirubin Total 0.6 mg/dL (0.2-1.3); Blood Urea Nitrogen 14 mg/dL (7-17); Calcium 9.6 mg/dL (8.4-10.2); Carbon Dioxide 26 mmol/L (22-32); Chloride 104 mmol/L (98-107); Creatine Kinase 27 U/L (30-135); Estimated Glomerular Filt Rate > 60 mL/min (>60); Globulin 3.3 g/dL (1.7-4.1); Glucose 131 mg/dL (80-110); HEMOLYSIS < 15 (0-50); Lipase 81 U/L (23-300); Potassium 4.4 mmol/L (3.4-5.1); Sodium 139 mmol/L (137-145); Total Protein 7.5 g/dL (6.3-8.2)
[2024-05-04 20:15] LABS: Prothrombin Time 11.6 SECONDS (9.4-12.5)
[2024-05-04 20:18] LABS: PTT Partial Thromboplastin Tim 37 SECONDS (25.1-36.5)
[2024-05-04 20:23] LABS: NT-proBNP (BNP-Adult 18+) 1400 pg/mL (<450); Troponin I < 0.012 ng/mL (0.01-0.034)
--- NOTE | 2024-05-04 21:32 | ED_ITS ---
HPI - Arrhythmia/Palpitations General Chief Complaint: Arrhythmia/Palpitations Stated Complaint: afib Time Seen by Provider: 05/04/24 21:32 Source: patient Mode of arrival: Ambulatory History of Present Illness HPI narrative: Patient is a 84-year-old female with history of paroxysmal atrial fibrillation on aspirin, history of hypertension presenting today with palpitations. She reports that she is really in atrial fibrillation. She says she had an episode 3 days ago and then she had 1 again today starting at 10:00 a.m.. Usually a goes away pretty quickly however this 1 has been lasting all day. She actually cardioverted herself when IV was started by nursing. Not dizzy lightheaded no shortness of breath no other symptoms. She has an appointment with Cardiology Dr. Pace in June. Related Data Home Medications Medication Instructions Recorded Confirmed ascorbic acid (vitamin C) 1,000 mg 1,000 mg PO DAILY 10/07/18 03/10/24 tablet aspirin 81 mg chewable tablet 81 mg PO DAILY 10/07/18 03/10/24 cholecalciferol (vitamin D3) 25 1,000 unit PO 4XW 10/07/18 03/10/24 mcg (1,000 unit) capsule Previous Rx's Medication Instructions Recorded rosuvastatin 10 mg tablet (Crestor) 10 mg PO DAILY #90 tabs 03/04/23 lisinopril 20 mg tablet 20 mg PO DAILY #90 tabs 07/16/23 metoprolol tartrate 25 mg tablet 25 mg PO DAILY #90 tabs 03/15/24 Allergies Allergy/AdvReac Type Severity Reaction Status Date / Time Sulfa (Sulfonamide Allergy Severe RASH Verified 05/04/24 19:04 Antibiotics) [SULFA (SULFONAMIDE ANTIBIOTICS)] meperidine [From DEMEROL] AdvReac Severe NAUSEA/VOMI Verified 05/04/24 19:04 TING fentanyl AdvReac nausea and Verified 05/04/24 19:04 vomiting Patient History Medical History Visit for wound check Social History Smoking Status: Former smoker Smoking Status: Former smoker alcohol intake frequency: 0-2 drinks per day Substance Use Type: does not use Exam Initial Vital Signs Initial Vital Signs: Vital Signs Temperature 97.3 F L 05/04/24 19:00 Pulse Rate 145 H 05/04/24 19:00 Respiratory Rate 18 05/04/24 19:00 Blood Pressure 151/108 H 05/04/24 19:00 Pulse Oximetry 96 05/04/24 19:00 Oxygen Delivery Method Room Air 05/04/24 19:00 GENERAL: Alert pleasant 84-year-old female and in no acute distress. HEENT: Head atraumatic,EOMI, pupils reactive, face symmetric, moist mucous membranes CARDIOVASCULAR: Regular rate and rhythm without murmurs, rubs or gallops. RESPIRATORY: Breath sounds equal bilaterally, no wheezes rales or rhonchi. ABDOMEN: Soft, nontender. Normoactive bowel sounds all 4 quadrants. No guarding or rebound. EXTREMITIES: Normal range of motion, no clubbing or edema. Neurovascularly intact NEUROLOGICAL: Alert and oriented x4.Normal gait and speech. Cranial nerves II through XII grossly intact. SKIN: Warm, dry, no laceration, no petechiae, no rashes or lesions. Course Orders Ordered: Discontinued Medications Aspirin (Aspirin 81 Mg Chew Tab) 324 mg PO NOW ONE Stop: 05/04/24 19:05 Last Admin: 05/04/24 19:38 Dose: 324 mg Documented By: AB Vital Signs Vital signs: Vital Signs - 8 hr 05/04/24 21:55 Temperature 98.7 F Pulse Rate 72 Respiratory Rate 12 Blood Pressure 147/70 H Pulse Oximetry 99 Oxygen Delivery Method Room Air MDM - Arrhythmia/Palpitations Lab Data 05/04/24 19:48 05/04/24 19:48 Labs: Lab Results 05/04/24 05/04/24 Range/Units 19:48 19:57 WBC 5.1 (4.5-11.0) X10^3/uL RBC 4.36 (4.0-5.2) X10^6/uL Hgb 13.9 (12.0-16.0) g/dL Hct 41.2 (36-46) % MCV 94.5 (80-100) fL MCH 31.8 (26-34) PG MCHC 33.7 (30-36) % RDW 12.6 (11.6-14.8) % Plt Count 245 (150-400) X10^3/uL Neut % (Auto) 37.4 L (50-75) % Lymph % (Auto) 52.1 H (25-40) % [place] % (Auto) 8.8 (3-14) % Eos % (Auto) 0.5 L (2-4) % Baso % (Auto) 1.2 (0-2) % Neut # (Auto) 1900 (5273-3413) /uL Lymph # (Auto) 2700 (1673-9441) /uL [place] # (Auto) 400 (0-900) /uL Eos # (Auto) 0 (0-450) /uL Baso # (Auto) 100 (0-100) /uL PT 11.6 (9.4-12.5) SECONDS INR 1.0 (0.9-1.3) APTT 37 H (25.1-36.5) SECONDS Sodium 139 (137-145) mmol/L Potassium 4.4 (3.4-5.1) mmol/L Chloride 104 (98-107) mmol/L Carbon Dioxide 26 (22-32) mmol/L BUN 14 (7-17) mg/dL Creatinine 0.59 (0.52-1.04) mg/dL Estimated GFR > 60 (>60) mL/min BUN/Creatinine Ratio 23.7 H (6-22) Glucose 131 H (80-110) mg/dL Calcium 9.6 (8.4-10.2) mg/dL Magnesium 2.0 (1.6-2.3) mg/dL Total Bilirubin 0.6 (0.2-1.3) mg/dL AST 38 H (14-36) IU/L ALT 31 (<35) IU/L Alkaline Phosphatase 66 (38-126) U/L Total Creatine Kinase 27 L (30-135) U/L Troponin I < 0.012 (0.01-0.034) ng/mL NT-Pro-B Natriuret Pep 1400 H (<450) pg/mL Total Protein 7.5 (6.3-8.2) g/dL Albumin 4.2 (3.5-5.0) g/dL Globulin 3.3 (1.7-4.1) g/dL Albumin/Globulin Ratio 1.3 (1.0-2.8) Lipase 81 (23-300) U/L Imaging Data Chest x-ray: Radiologist's Impresson: PROCEDURE: XR CHEST 1V INDICATIONS: chest pain TECHNIQUE: One view of the chest was acquired. COMPARISON: None. FINDINGS: Surgical changes and devices: None. Lungs and pleura: Lungs are clear. No pleural effusions or pneumothorax. Mediastinum: Mediastinal contours appear normal. Heart size is normal. Bones and chest wall: No suspicious bony lesions. Overlying soft tissues appear unremarkable. IMPRESSION: No acute pulmonary process. Dictated by: Thu Carter M.D. on 05/04/2024 at 20:02 ECG Data Attestation: I personally reviewed and interpreted this ECG as follows: Prior ECG tracings: not available for review Interpretation: Normal sinus rhythm rate 80 FL interval 202 QRS 72 QTC [address] changes priors to compare MDM Narrative Medical decision making narrative: MDM CC: Palpitations Complicating co-morbidities: Paroxysmal atrial fibrillation on aspirin hypertension hyperlipidemia Differential considered: Cardiac arrhythmia, atrial fibrillation Exam documented above, pertinent findings include: Alert well-appearing female regular rate and rhythm, no peripheral edema or fluid overload Lab Test results independently reviewed as above. Pertinent findings: Troponin negative, BNP 1400 Electrolytes within normal limits no JOEL Independently reviewed EKG as above sinus rhythm Imaging studies independently reviewed: No cardiopulmonary process or pulmonary edema Treatments: None Re-evaluations: Remains in sinus rhythm Discussion: Patient is a 84-year-old female presenting today with heart palpitations. She is paroxysmal AFib on aspirin. She had an episode 3 days ago and another episode today. She has not a candidate for cardioversion she has had a couple of episodes this week. We did have a long discussion in regards to anticoagulation. She has been resistant to for a long time and has had very frequent and rare episodes. Aspirin dose for AFib aspirin dose for AFib BEENA?DS?-VASc Score for Atrial Fibrillation Stroke Risk from [employer] on 05/04/2024 All calculations should be rechecked by clinician prior to use RESULT SUMMARY: 4 points Stroke risk was 4.8% per year in >90,000 patients (the [place] Atrial Fibrillation Cohort Study) and 6.7% risk of stroke/TIA/systemic embolism. INPUTS: Age ?> 2 = >=5 Sex ?> 1 = Female CHF history ?> 0 = No Hypertension history ?> 1 = Yes Stroke/TIA/thromboembolism history ?> 0 = No Vascular disease history (prior [place], peripheral artery disease, or aortic plaque) ?> 0 = No Diabetes history ?> 0 = No Discharge Plan Departure Patient Disposition: Home Clinical Impression: Paroxysmal atrial fibrillation Instructions: DI for Atrial Fibrillation Activity Restrictions/Additional Instructions: *You have been diagnosed with paroxysmal atrial fibrillation *What to do: At this time please consider taking anticoagulation such as Eliquis. Discuss with your client service professional. *Continue to take medications as directed Aspirin 81 mg daily *Follow up with your primary care provider in 2-3 days or call [phone] *Return to ER if you should have increased palpitations dizziness lightheadedness shortness of or any new, worsening or concerning symptoms Prescriptions: No Action lisinopril 20 mg tablet 20 mg PO DAILY Qty: 90 1RF metoprolol tartrate 25 mg tablet 25 mg PO DAILY Qty: 90 3RF rosuvastatin [Crestor] 10 mg tablet 10 mg PO DAILY Qty: 90 3RF aspirin 81 mg tablet,chewable 81 mg PO DAILY ascorbic acid (vitamin C) 1,000 mg tablet 1,000 mg PO DAILY cholecalciferol (vitamin D3) 1,000 unit capsule 1,000 unit PO 4XW Referrals: Geovany Soriano MD [Primary Care Provider] - Stand Alone Forms: Patient Portal/API/Survey
== END 2024-05-04 21:56 | disposition home or self-care (01) ==
PROVIDERS: Emergency Provider Emergency Medicine; PCP Family Medicine
DX: I48.0 Paroxysmal atrial fibrillation (principal); Z79.82 Long term (current) use of aspirin; R07.9 Chest pain, unspecified
CPT/HCPCS: 36415; 71045; 80053; 82550; 83690; 83735; 83880; 84484; 85025; 85610; 85730; 93005; 99284

== ENCOUNTER → 2024-07-28 10:49 | Outpatient (CLI) | payer MEDICARE, OTHER, SELFPAY ==
--- NOTE | 2024-07-28 10:51 | DI.MG.S_ITS ---
BILATERAL DIGITAL SCREENING MAMMOGRAM 3D/2D WITH CAD: 07/28/2024 CLINICAL: Routine screening. Family history of breast cancer. Comparison is made to exams dated: 07/09/2023 mammogram, 06/25/2022 mammogram, 05/21/2021 mammogram, 04/19/2020 mammogram, and 04/06/2019 mammogram - [facility]. The breasts are heterogeneously dense, which may obscure small masses (category c / 51-75% glandular tissue). Current study was also evaluated with a Computer Aided Detection (CAD) system. No significant masses, calcifications, or other findings are seen in either breast. There has been no significant interval change. IMPRESSION: NEGATIVE There is no mammographic evidence of malignancy. A 1 year screening mammogram is recommended. Based on the Tyrer Cuzick model (a risk assessment model) the patient's lifetime risk is 2.1% and her 10 year risk is 0.0%. According to the ACR, ACS, and NCCN guidelines, an annual breast MRI exam along with mammogram is recommended if the patient's lifetime risk is 20% or greater. This exam was interpreted at Station ID: [id number]. NOTE: For mammograms, a report in lay terms will be sent to the patient. Approximately 15% of breast malignancies will not be visualized mammographically. In the management of a palpable breast mass, a negative mammogram must not discourage biopsy of a clinically suspicious lesion. Electronically Signed By: Aric mejia/dora:07/28/2024 18:24:45 letter sent: Normal Exam ACR BI-RADS Category 1: Negative
== END ==
PROVIDERS: PCP Family Medicine; Referring Provider Family Medicine; Visit Provider Family Medicine
DX: Z12.31 Encounter for screening mammogram for malignant neoplasm of breast (principal); Z80.3 Family history of malignant neoplasm of breast; R92.333 Mammographic heterogeneous density, bilateral breasts
CPT/HCPCS: 77063; 77067

== ENCOUNTER → 2024-11-04 17:13 | Outpatient (CLI) | payer MEDICARE, OTHER, SELFPAY ==
--- NOTE | 2024-11-04 17:16 | DI.MRI.S_ITS ---
PROCEDURE: MR LUMBAR SPINE WO CON INDICATIONS: low back pain, LE weakness bilat, neurogenic claudication TECHNIQUE: Noncontrast sagittal T1 spin echo and T2 fast echo, coronal T2, sagittal STIR, and T2 fast spin echo through the lumbar spine. COMPARISON: [facility], CR, SPINE LUMB 2 OR 3VW, 04/09/2016, 15:13. [facility], , MR LUMBAR SPINE WO CON, 12/13/2018, 11:07. FINDINGS: Image quality: Excellent. Alignment and Curvature: 5 lumbar type vertebral bodies are present by plain film. Moderate leftward curvature of the mid lumbar spine. Loss of normal lumbar lordosis. Bone Marrow: Marrow is of normal overall signal. No acute vertebral body compression fractures. 2 mm of retrolisthesis of L2 on L3. 3 mm of retrolisthesis of L3 on L4. 2 mm of retrolisthesis of L5 on S1. Moderate reactive signal within the endplates adjacent to the L2-L3, L3-L4, L4-L5, and L5-S1 intervertebral discs. Mild reactive signal within the remaining lumbar and lower thoracic endplates. Spinal Cord: Conus medullaris terminates at the L1 level. Visualized cord demonstrates normal signal and size. Paraspinous Soft Tissues: No paravertebral masses. T12-L1: Mild disc height loss and desiccation. Mild facet and ligamentum flavum hypertrophy. Mild epidural lipomatosis. No significant canal stenosis. Mild bilateral foraminal stenosis. No significant change. L1-L2: Moderate disc height loss and desiccation. Mild diffuse disc bulge with superimposed left paracentral disc extrusion, new since the prior examination. Mild facet and ligamentum flavum hypertrophy. Mild epidural lipomatosis. There is increased, moderate canal stenosis. Stable mild bilateral foraminal stenosis. Compression and posterior deviation of the left L2 nerve root within the lateral recess, new since the prior examination. L2-L3: Moderate disc height loss and desiccation. Moderate diffuse disc bulge. Moderate bilateral facet hypertrophy. Mild ligamentum flavum hypertrophy and epidural lipomatosis. Moderate canal stenosis. Mild left and moderate right foraminal stenosis. No significant change. L3-L4: Moderate disc height loss and desiccation. Moderate diffuse disc bulge with superimposed broad-based left paracentral protrusion. Mild facet hypertrophy. Mild epidural lipomatosis. Moderate canal stenosis. Moderate bilateral foraminal stenosis. No significant change. L4-L5: Severe disc height loss and desiccation. Moderate diffuse disc bulge/osteophyte with superimposed broad-based left paracentral and posterolateral protrusion. Mild bilateral facet hypertrophy. Mild epidural lipomatosis. Moderate canal stenosis. Moderate left and mild right foraminal stenosis. Compression and posterior deviation of the left L5 nerve root within the lateral recess. No significant change. L5-S1: Moderate disc height loss and desiccation. Mild diffuse disc bulge. Moderate bilateral facet hypertrophy. Mild canal stenosis. Severe left and mild right foraminal stenosis. Left L5 nerve root compression. No significant change. IMPRESSION: 1. Multilevel degenerative disc and facet disease, as well as ligamentum flavum hypertrophy and epidural lipomatosis. 2. Multilevel canal stenoses, worst at L1-L2, L2-L3, L3-L4, and L4-L5 where there are moderate canal stenosis. 3. Multilevel foraminal stenoses, worst at L5-S1 where there is associated intraforaminal nerve root compression. 4. Lateral recess stenosis at L1-L2 and L4-L5 where there is associated nerve root compression. 5. Recommend correlation with clinical symptoms to ascertain relevance of these findings. Dictated by: Josafat Mora M.D. on 11/08/2024 at 12:43 Approved by: Josafat Mora M.D. on 11/08/2024 at 12:49
== END ==
PROVIDERS: PCP Family Medicine; Referring Provider Family Medicine; Visit Provider Family Medicine
DX: M51.16 Intervertebral disc disorders with radiculopathy, lumbar region (principal); M51.17 Intervertebral disc disorders with radiculopathy, lumbosacral region; M47.26 Other spondylosis with radiculopathy, lumbar region; M47.27 Other spondylosis with radiculopathy, lumbosacral region; M48.062 Spinal stenosis, lumbar region with neurogenic claudication; M48.07 Spinal stenosis, lumbosacral region; M21.372 Foot drop, left foot
CPT/HCPCS: 72148

== ENCOUNTER → 2025-03-23 15:28 | Outpatient (CLI) | payer MEDICARE, OTHER, SELFPAY ==
[2025-01-23 17:12] VITALS: BMI 22.1
== END ==
PROVIDERS: PCP Family Medicine; Referring Provider Nurse Practitioner; Visit Provider Nurse Practitioner
DX: I48.91 Unspecified atrial fibrillation (principal); Z79.899 Other long term (current) drug therapy; J98.8 Other specified respiratory disorders; R94.2 Abnormal results of pulmonary function studies
CPT/HCPCS: 94010; 94729